=== PATIENT | female | born 1960 | race Caucasian/White ===

== ENCOUNTER 2018-07-04 21:18 | Emergency (ER) | payer MEDICARE ==
[2018-07-05 00:59] LABS: ADD MAN DIFF? NO
[2018-07-05 01:01] LABS: BASOPHIL # 0.1 10^3/ul (0.0-0.1); BASOPHILS % 0.6 % (0.0-2.0); EOSINOPHILS # 0.3 10^3/ul (0.0-0.5); EOSINOPHILS % 2.4 % (0.0-7.0); HEMATOCRIT 37.4 % (37.0-47.0); HEMOGLOBIN 12.3 g/dl (12.0-16.0); LYMPHOCYTES # 2.5 10^3/ul (0.8-2.9); LYMPHOCYTES % 24.7 % (15.0-51.0); MEAN CORPUSCULAR HEMOGLOBIN 29.5 pg (29.0-33.0); MEAN CORPUSCULAR HGB CONC 32.9 g/dl (32.0-37.0); MEAN CORPUSCULAR VOLUME 89.7 fl (82.0-101.0); MEAN PLATELET VOLUME 10.3 fl (7.4-10.4); MONOCYTES % 9.7 % (0.0-11.0); NEUTROPHIL # 6.4 10^3/ul (1.6-7.5); NEUTROPHILS % 62.4 % (39.0-77.0); PLATELET COUNT 283 10^3/UL (140-415); RED BLOOD COUNT 4.17 10^6/ul (4.20-5.40); RED CELL DISTRIBUTION WIDTH 17.5 % (11.5-14.5)
[2018-07-05 01:01] LABS: WHITE BLOOD COUNT 10.2 10^3/ul (4.8-10.8)
[2018-07-05] MEDS: SOD CHLORIDE 0.9% 1,000 ML IV (01:34)
[2018-07-05 01:36] LABS: ALANINE AMINOTRANSFERASE 23 IU/L (13-69); ALBUMIN 3.8 g/dl (3.3-4.9); ALBUMIN/GLOBULIN RATIO 1.35; ALKALINE PHOSPHATASE 64 IU/L (42-121); ANION GAP 6 (5-13); ASPARTATE AMINO TRANSFERASE 28 IU/L (15-46); BILIRUBIN,INDIRECT 0.1 mg/dl (0-1.1); BILIRUBIN,TOTAL 0.1 mg/dl (0.2-1.3); BLOOD UREA NITROGEN 27 mg/dl (7-20); CALCIUM 9.3 mg/dl (8.4-10.2); CARBON DIOXIDE 28 mmol/L (21-31); CHLORIDE 108 mmol/L (97-110); Estimated GFR > 60 mL/min (>60); GLUCOSE 72 mg/dl (70-220); POTASSIUM 3.7 mmol/L (3.5-5.1); SODIUM 142 mmol/L (135-144); TOTAL PROTEIN 6.6 g/dl (6.1-8.1)
[2018-07-05] MEDS: ALPRAZOLAM 1 MG TAB PO (01:37)
[2018-07-05] MEDS: LIDOCAINE 5% PATCH TD (01:39)
[2018-07-05] MEDS: DRONABINOL 2.5 MG CAP PO (01:54)
== END 2018-07-05 03:14 | disposition home or self-care (01) ==
LOC: E/R 21:18
DX: M54.9 Dorsalgia, unspecified (principal); F17.210 Nicotine dependence, cigarettes, uncomplicated
CPT/HCPCS: 36415; 80053; 85025; 99284-25

== ENCOUNTER 2018-07-06 09:55 | Emergency (ER) | payer MEDICARE ==
[2018-07-06 10:56] LABS: ADD MAN DIFF? NO
[2018-07-06 11:02] LABS: BASOPHIL # 0.1 10^3/ul (0.0-0.1); BASOPHILS % 0.8 % (0.0-2.0); EOSINOPHILS # 0.2 10^3/ul (0.0-0.5); EOSINOPHILS % 2.4 % (0.0-7.0); LYMPHOCYTES # 1.8 10^3/ul (0.8-2.9); LYMPHOCYTES % 22.6 % (15.0-51.0); MEAN CORPUSCULAR HGB CONC 33.3 g/dl (32.0-37.0); MEAN CORPUSCULAR VOLUME 87.1 fl (82.0-101.0); MONOCYTE # 0.8 10^3/ul (0.3-0.9); MONOCYTES % 10.4 % (0.0-11.0); NEUTROPHILS % 63.4 % (39.0-77.0); PLATELET COUNT 311 10^3/UL (140-415); RED BLOOD COUNT 4.48 10^6/ul (4.20-5.40); RED CELL DISTRIBUTION WIDTH 17.2 % (11.5-14.5)
[2018-07-06 11:02] LABS: WHITE BLOOD COUNT 7.9 10^3/ul (4.8-10.8)
[2018-07-06] MEDS: ACETAMINOPHEN 325 MG TAB PO (11:12)
[2018-07-06 11:25] LABS: ALANINE AMINOTRANSFERASE 22 IU/L (13-69); ALBUMIN 3.9 g/dl (3.3-4.9); ALBUMIN/GLOBULIN RATIO 1.25; ALKALINE PHOSPHATASE 77 IU/L (42-121); ANION GAP 5 (5-13); ASPARTATE AMINO TRANSFERASE 26 IU/L (15-46); BILIRUBIN,INDIRECT 0.5 mg/dl (0-1.1); BILIRUBIN,TOTAL 0.5 mg/dl (0.2-1.3); BLOOD UREA NITROGEN 17 mg/dl (7-20); CALCIUM 9.1 mg/dl (8.4-10.2); CARBON DIOXIDE 26 mmol/L (21-31); CHLORIDE 111 mmol/L (97-110); CREATININE 0.87 mg/dl (0.44-1.00); Estimated GFR > 60 mL/min (>60); GLUCOSE 91 mg/dl (70-220); POTASSIUM 4.8 mmol/L (3.5-5.1); SODIUM 142 mmol/L (135-144)
[2018-07-06 11:26] LABS: ACETAMINOPHEN < 10.0 ug/ml (10.0-30.0); ETHANOL < 10.0 mg/dl (0-0); SALICYLATE < 1.0 mg/dl (5.0-30.0)
[2018-07-06] MEDS: LORAZEPAM 1 MG TAB PO ×2 (13:12→13:14)
[2018-07-06] MEDS: DIVALPROEX (EC) 500 MG TAB PO (14:12)
[2018-07-06] MEDS ORDERED: DIPHENHYDRAMINE 50 MG INJ (14:14)
[2018-07-06] MEDS ORDERED: HALOPERIDOL 5 MG INJ (14:14)
[2018-07-06] MEDS ORDERED: LORAZEPAM 2 MG INJ (14:14)
[2018-07-06] MEDS: ALPRAZOLAM 1 MG TAB PO (14:28)
[2018-07-06 14:29] LABS: ADD UMIC YES; UR ASCORBIC ACID NEGATIVE (NEGATIVE); UR BILIRUBIN (Dip) NEGATIVE (NEGATIVE); UR BLOOD (Dip) NEGATIVE (NEGATIVE); UR CLARITY SLIGHTLY CLOUDY (CLEAR); UR COLOR YELLOW (YELLOW); UR GLUCOSE (Dip) NEGATIVE (NEGATIVE); UR KETONES (Dip) NEGATIVE (NEGATIVE); UR LEUKOCYTE ESTERASE (Dip) 1+ Leu/ul (NEGATIVE); UR MUCUS FEW /HPF (NONE SEEN); UR NITRITE (Dip) NEGATIVE (NEGATIVE); UR RBC 3 /HPF (0-5); UR SPECIFIC GRAVITY (Dip) 1.016 (1.003-1.030); UR TOTAL PROTEIN (Dip) NEGATIVE (NEGATIVE); UR UROBILINOGEN (Dip) NEGATIVE (NEGATIVE); UR WBC 18 /HPF (0-5)
[2018-07-06] MEDS ORDERED: HALOPERIDOL 5 MG INJ IM (14:30)
[2018-07-06] MEDS ORDERED: DIPHENHYDRAMINE 50 MG INJ IM (14:30)
[2018-07-06] MEDS ORDERED: LORAZEPAM 2 MG INJ IM (14:30)
[2018-07-06 14:59] LABS: AMPHETAMINE/METHAMPHETAMINE Negative (NEGATIVE); BARBITURATES Negative (NEGATIVE); CANNABINOIDS Positive (NEGATIVE); COCAINE Negative (NEGATIVE); OPIATES Negative (NEGATIVE)
[2018-07-06 15:12] LABS: BENZODIAZEPINES Positive (NEGATIVE)
[2018-07-06] MEDS: HALOPERIDOL 5 MG INJ IM (17:11)
[2018-07-06] MEDS: DIPHENHYDRAMINE 50 MG INJ IM (17:11)
[2018-07-06] MEDS: LORAZEPAM 2 MG INJ IM (17:11)
[2018-07-06] MEDS: CEPHALEXIN 500 MG CAP PO (20:15)
== END 2018-07-07 00:16 ==
LOC: E/R 07-07 00:16
DX: F29 Unspecified psychosis not due to a substance or known physiological condition (principal); F12.10 Cannabis abuse, uncomplicated; N30.00 Acute cystitis without hematuria; F79 Unspecified intellectual disabilities; F17.210 Nicotine dependence, cigarettes, uncomplicated; R07.9 Chest pain, unspecified
CPT/HCPCS: 71045; 80053; 80307; 81001; 85025; 96372; 99285-25